=== PATIENT | male | born 1985 | race Caucasian/White ===

== ENCOUNTER 2018-06-23 08:22 | Emergency (ER) | payer OTHER | END 2018-06-23 09:46 | disposition home or self-care (01) | LOC: M ED 08:22 | DX: S00.93XA Contusion of unspecified part of head, initial encounter (principal); S00.91XA Abrasion of unspecified part of head, initial encounter; W20.8XXA Other cause of strike by thrown, projected or falling object, initial encounter; Y92.098 Other place in other non-institutional residence as the place of occurrence of the external cause | CPT/HCPCS: 70450 ==